=== PATIENT | female | born 1960 | race Caucasian/White ===

== ENCOUNTER 2019-06-29 07:35 | Day surgery (SDC) | payer OTHER ==
[~2019-06-29] VITALS: Ht 162.6 cm; Wt 83.9 kg
[2019-06-29] MEDS ORDERED: HYDROmorphone 1 MG INJ. 1 MG/ML AMPUL IVP PRN ×2 (11:00)
[2019-06-29] MEDS ORDERED: ONDANSETRON HCL 4 MG/2 ML VIAL IVP PRN (11:00)
[2019-06-29] MEDS ORDERED: LR 1,000 ML IV.SOLN IV ONE (11:53)
[2019-06-29] MEDS ORDERED: PROPOFOL 200MG/ 20ML VIAL (DIPRIVAN) IV ONE (11:53)
[2019-06-29] MEDS ORDERED: ONDANSETRON HCL 4 MG/2 ML VIAL ONE (11:53)
[2019-06-29] MEDS ORDERED: HYDROmorphone 2 MG/ML VIAL ONE (11:53)
[2019-06-29] MEDS ORDERED: LIDOCAINE/EPI 1% 1:100000 20 ML VIAL INJ ONE (11:53)
[2019-06-29] MEDS ORDERED: DESFLURANE 15 MIN GAS INH ONE (11:53)
[2019-06-29] MEDS ORDERED: OXYMETAZOLINE HCL 0.05% NASAL SPRAY NS ONE (11:53)
[2019-06-29] MEDS ORDERED: SUCCINYLCHOLINE CHLORIDE 20 MG/ML(QUELICIN) ONE (11:53)
[2019-06-29] MEDS ORDERED: fentaNYL CITRATE/PF 100 MCG/2 ML AMP IVP ONE (11:53)
[2019-06-29] MEDS ORDERED: DEXAMETHASONE SOD PHOSPHATE 4 MG/ML VIAL ONE (11:53)
[2019-06-29] MEDS ORDERED: MUPIROCIN 2% TOPICAL OINTMENT 22 GM ONE (11:53)
[2019-06-29] MEDS ORDERED: WATER FOR IRRIGATION,STERILE 1,000 ML IRRIG.SOLN IR ONE (11:53)
[2019-06-29] MEDS ORDERED: NS 1000 ML IV.SOLN IV ONE (11:53)
[2019-06-29] MEDS ORDERED: NS IRRIG SOLN 1000 ML IR ONE (11:53)
[2019-06-29] MEDS ORDERED: ROCURONIUM BROMIDE 10 MG/ML (ZEMURON) ONE (11:53)
[2019-06-29] MEDS ORDERED: INSULIN REGULAR, HUMAN 100 UNITS/ML, 10 ML VIAL (humuLIN R) ONE (12:56)
[2019-06-29 13:10] VITALS: BP_SYST 127
[2019-06-29] MEDS ORDERED: INSULIN REGULAR, HUMAN 100 UNITS/ML, 10 ML VIAL SUBCUT ONE (13:30)
[2019-06-29] MEDS ORDERED: INSULIN REGULAR, HUMAN 100 UNITS/ML, 10 ML VIAL SUBCUT SCH (17:00)
== END 2019-06-29 15:30 | disposition home or self-care (01) ==
LOC: SDS 07:35 → SMU 07:35 → SDS 15:30
PROVIDERS: ATTEND Otolaryngology
DX: J34.2 Deviated nasal septum (principal); J34.89 Other specified disorders of nose and nasal sinuses; R04.0 Epistaxis; J31.0 Chronic rhinitis; I10 Essential (primary) hypertension; E66.9 Obesity, unspecified; E11.41 Type 2 diabetes mellitus with diabetic mononeuropathy; Z88.8 Allergy status to other drugs, medicaments and biological substances
CPT/HCPCS: 30140; 30520; 82948; 82962; 88305; 88311; J0330; J1100; J1170; J1815 ×2; J2405; J2704; J7030; J7120; J3010